=== PATIENT | female | born 1940 | race African-American/Black ===

== ENCOUNTER 2018-04-18 12:39 | Emergency (ER) | payer SELFPAY ==
[~2018-04-18] VITALS: Ht 172.7 cm; Wt 117.0 kg
[2018-04-18] MEDS ORDERED: KETOROLAC 60MG/2ML VIAL IM ONE (13:00)
[2018-04-18 13:30] LABS: BASOPHILS % 0.3 % (0.0-2.0); EOSINOPHILS % 1.7 % (0.0-5.0); HEMATOCRIT. 33.8 % (36.0-48.0); HEMOGLOBIN. 10.7 g/dL (12.0-16.0); LYMPHOCYTES % 17.9 % (20.0-50.0); MEAN CORPUSCULAR HEMOGLOBIN 24.4 pg (28.0-32.0); MEAN CORPUSCULAR VOLUME 76.8 fL (81.0-99.0); MONOCYTES % 8.1 % (2.0-8.0); PLATELET 216 x1000/uL (130-400); RED CELL DISTRIBUTION WIDTH 17.3 % (11.6-14.6)
[2018-04-18 13:31] LABS: CHLORIDE 110 mEq/L (98-107)
[2018-04-18 13:32] LABS: INR 1.1; PROTHROMBIN TIME 10.9 sec (9.4-11.6)
[2018-04-18 17:26] VITALS: BP 176/67
== END 2018-04-18 17:30 | disposition home or self-care (01) ==
LOC: EDSEX 12:39 → ER 12:39
DX: M16.0 Bilateral primary osteoarthritis of hip (principal); N28.9 Disorder of kidney and ureter, unspecified; F03.90 Unspecified dementia, unspecified severity, without behavioral disturbance, psychotic disturbance, mood disturbance, and anxiety; E11.9 Type 2 diabetes mellitus without complications; I10 Essential (primary) hypertension; Z88.5 Allergy status to narcotic agent; W01.0XXA Fall on same level from slipping, tripping and stumbling without subsequent striking against object, initial encounter; Y93.89 Activity, other specified; Y92.018 Other place in single-family (private) house as the place of occurrence of the external cause
CPT/HCPCS: 36415; 70450; 71045; 73521; 80053; 82962; 85025; 85610; 96372; 99285; J1885; Z7610